=== PATIENT | female | born 1970 ===

== ENCOUNTER 2024-12-19 07:00 | Day surgery (SDC) | payer OTHER ==
[2024-12-19] MEDS ORDERED: ONDANSETRON HCL 2 MG/ML VIAL IV ONE (12:30)
[2024-12-19] MEDS ORDERED: DIPHENHYDRAMINE HCL 50 MG/ML VIAL 1ML IV ONE (12:30)
[2024-12-19] MEDS ORDERED: fentaNYL CITRATE 50 MCG/ML AMPUL IV PUSH ONE (12:30)
[2024-12-19] MEDS ORDERED: MIDAZOLAM HCL 2 MG/2 ML VIAL IV ONE (12:30)
== END 2024-12-19 13:50 | disposition home or self-care (01) ==
LOC: AMB-ENDOS 07:00
PROVIDERS: ATTEND Colon & Rectal Surgery
DX: C20 Malignant neoplasm of rectum (principal); K62.1 Rectal polyp; Z12.11 Encounter for screening for malignant neoplasm of colon

== ENCOUNTER 2025-01-30 09:45 | Inpatient (IN) | payer OTHER ==
[~2025-01-30] VITALS: Ht 152.4 cm; Wt 63.5 kg
[2025-01-30] MEDS ORDERED: VITAMIN D310 MCG/1 M PO (15:17)
[2025-01-30 15:58] VITALS: BP 135/91
[2025-01-30 17:21] LABS: RH POSITIVE
[2025-02-03] MEDS ORDERED: METRONIDAZOLE/SODIUM CHLORIDE 500 MG/100 ML PIGGYBACK IV ONE (13:15)
[2025-02-03] MEDS ORDERED: CEFTRIAXONE SODIUM 2,000 MG VIAL IV ONE (13:15)
[2025-02-03] MEDS ORDERED: BUPIVACAINE HCL 30 ML VIAL IJ ONE (13:15)
[2025-02-03] MEDS ORDERED: LIDOCAINE HCL 1%/EPINEPHRINE 20ML VIAL IJ ONE (13:15)
[2025-02-03] MEDS ORDERED: GABAPENTIN 300 MG CAPSULE PO SCH (18:08)
[2025-02-03] MEDS ORDERED: ACETAMINOPHEN 500 MG GEL..CAP PO SCH (18:10)
[2025-02-03] MEDS ORDERED: ONDANSETRON HCL 2 MG/ML VIAL IV PRN (18:15)
[2025-02-03] MEDS ORDERED: OxyCODONE HCL 5 MG TABLET (ROXICODONE) PO PRN (18:15)
[2025-02-03] MEDS ORDERED: RINGERS SOLUTION,LACTATED 1,000 ML IV SCH (18:15)
[2025-02-03] MEDS ORDERED: MORPHINE SULFATE 4 MG/ML CARTRIDGE IV PRN (18:15)
[2025-02-03] MEDS ORDERED: FAMOTIDINE/PF 20 MG/2 ML VIAL IV PUSH SCH (21:00)
[2025-02-03] MEDS ORDERED: SIMETHICONE 125 MG CAPSULE PO SCH (21:00)
[2025-02-03 21:14] LABS: BASO % 0.2 % (0.1-1.2); EOS # 0.00 (0.04-0.54); EOS % 0.0 % (0.7-7.0); LYMPH # 0.56 (1.18-3.74); LYMPH % 11.2 % (19.3-53.1); MEAN PLATELET VOLUME 12.60 fl (9.4-12.4); MONO # 0.40 (0.24-0.82); MONO % 8.0 % (4.7-12.5); NEUT # 4.01 (1.56-6.13); NEUT % 80.6 % (34.0-71.1); RED CELL DISTRIBUTION WIDTH 13.4 % (11.6-14.4)
[2025-02-03 21:38] LABS: BUN CREA RATIO 11.0 (7.0-25.0); CREATININE SERUM 0.74 mg/dL (0.55-1.02); GFR 81.18; GLUCOSE FASTING 147.0 mg/dL (65-100); OSMOLALITY SERUM 288.0 MOSM/KG (275-295)
[2025-02-04 07:17] LABS: BASO % 0.2 % (0.1-1.2); EOS # 0.00 (0.04-0.54); EOS % 0.0 % (0.7-7.0); LYMPH # 1.05 (1.18-3.74); LYMPH % 18.1 % (19.3-53.1); MEAN PLATELET VOLUME 13.20 fl (9.4-12.4); MONO # 0.54 (0.24-0.82); MONO % 9.3 % (4.7-12.5); NEUT # 4.19 (1.56-6.13); NEUT % 72.2 % (34.0-71.1); RED CELL DISTRIBUTION WIDTH 13.1 % (11.6-14.4)
[2025-02-04 07:52] LABS: BUN CREA RATIO 15.0 (7.0-25.0); CREATININE SERUM 0.53 mg/dL (0.55-1.02); GFR 119.33; GLUCOSE FASTING 103.0 mg/dL (65-100); OSMOLALITY SERUM 284.0 MOSM/KG (275-295)
[2025-02-04 08:00] VITALS: BP 96/56; O2SAT 97
[2025-02-04] MEDS ORDERED: LACTOBACILLUS ACIDOPHILUS 1 CAP CAP PO SCH (09:00)
[2025-02-04] MEDS ORDERED: MAGNESIUM CHLORIDE 70 MG TABLET.DR PO SCH (09:00)
[2025-02-04] MEDS ORDERED: HYOSCYAMINE SULFATE 0.125 MG TAB.SUBL SL SCH (09:00)
[2025-02-04 16:00] VITALS: BP 98/58; O2SAT 98
[2025-02-04] MEDS ORDERED: POTASSIUM PHOS,M-BASIC-D-BASIC 15 MM in 0.9 % SODIUM CHLORIDE 250 ML IV NR (16:30)
[2025-02-04] MEDS ORDERED: MAGNESIUM SULFATE IN WATER 2 GM/50 ML PIGGYBAG IV NR (16:30)
[2025-02-04] MEDS ORDERED: MORPHINE SULFATE 2 MG/ML CARTRIDGE IV PRN (16:38)
[2025-02-04] MEDS ORDERED: ENOXAPARIN SODIUM 40 MG/0.4 ML SYRINGE SUBCUTANEO SCH (17:00)
[2025-02-05 01:22] VITALS: BP 104/62; O2SAT 97
[2025-02-05 08:00] VITALS: BP 105/66; O2SAT 95
[2025-02-05 08:45] LABS: BASO % 0.2 % (0.1-1.2); EOS # 0.01 (0.04-0.54); EOS % 0.2 % (0.7-7.0); LYMPH # 1.78 (1.18-3.74); LYMPH % 35.0 % (19.3-53.1); MEAN PLATELET VOLUME 13.00 fl (9.4-12.4); MONO # 0.58 (0.24-0.82); MONO % 11.4 % (4.7-12.5); NEUT # 2.69 (1.56-6.13); NEUT % 53.0 % (34.0-71.1); RED CELL DISTRIBUTION WIDTH 13.3 % (11.6-14.4)
[2025-02-05 09:17] LABS: BUN CREA RATIO 19.0 (7.0-25.0); CREATININE SERUM 0.42 mg/dL (0.55-1.02); GFR 156.07; GLUCOSE FASTING 114.0 mg/dL (65-100); OSMOLALITY SERUM 288.0 MOSM/KG (275-295)
[2025-02-05] MEDS ORDERED: POTASSIUM PHOS,M-BASIC-D-BASIC 3 MM/ML VIAL IV NR (10:00)
[2025-02-05 16:00] VITALS: BP 123/75; O2SAT 99
[2025-02-06 00:57] VITALS: BP 115/78; O2SAT 96
[2025-02-06 08:04] VITALS: BP 116/75; O2SAT 97
== END 2025-02-06 14:23 | disposition home or self-care (01) | DRG 331 ==
LOC: O/R 02-03 09:00 → SURH 02-03 09:00 → SURG 02-03 18:55 → SURH 02-03 18:57
PROVIDERS: ADMIT Colon & Rectal Surgery; ATTEND Colon & Rectal Surgery
PROC: 0DBP4ZZ Excision of Rectum, Percutaneous Endoscopic Approach (ICD-10-PCS; 2025-02-03)
PROC: 07BC4ZZ Excision of Pelvis Lymphatic, Percutaneous Endoscopic Approach (ICD-10-PCS; 2025-02-03)
PROC: 0DJD8ZZ Inspection of Lower Intestinal Tract, Via Natural or Artificial Opening Endoscopic (ICD-10-PCS; 2025-02-03)
PROC: 0DTN4ZZ Resection of Sigmoid Colon, Percutaneous Endoscopic Approach (ICD-10-PCS; principal; 2025-02-03 11:30)
DX: C20 Malignant neoplasm of rectum (principal); K63.5 Polyp of colon; K66.0 Peritoneal adhesions (postprocedural) (postinfection); R59.0 Localized enlarged lymph nodes; D69.59 Other secondary thrombocytopenia; K74.69 Other cirrhosis of liver; I10 Essential (primary) hypertension; E11.9 Type 2 diabetes mellitus without complications; Z88.6 Allergy status to analgesic agent; E83.42 Hypomagnesemia; E83.39 Other disorders of phosphorus metabolism